=== PATIENT | female | born 1960 | race Caucasian/White ===

== ENCOUNTER → 2016-07-23 | Outpatient (CLI) | payer OTHER ==
--- NOTE | 2016-07-23 11:07 | RADIOLOGY REPORT PS360 ---
US THYROID HISTORY: Enlarged thyroid gland ENLARGED THYROID ORDERING PHYSICIAN: Baylee Frausto APRN PATIENT AGE: 56 years COMPARISON: None FINDINGS: The right lobe measures 5.3 x 1.6 x 2.5 cm there is heterogeneous echogenicity of the right lobe. The left lobe measures 5.7 x 2.2 x 2.6 cm also demonstrating heterogeneous echogenicity. Vague nodular area posteriorly at 17 x 13 mm. The isthmus is thickened at 9 mm. There is some vague nodularity of the thyroid gland however, a discrete nodule is not identified in 2 planes. IMPRESSION: Enlarged heterogeneous thyroid gland consistent with goiter. No discrete nodule is evident. Vague nodularity noted on the left at 17 x 13 mm. Consider 6 month follow-up to confirm stability
== END ==
LOC: RAD 08:49 → RT 10:00
DX: R06.02 Shortness of breath (principal); E01.0 Iodine-deficiency related diffuse (endemic) goiter